=== PATIENT | female | born 1930 | race Caucasian/White ===

== ENCOUNTER 2016-12-17 12:26 | Emergency (ER) | payer OTHER ==
[2016-12-17 13:02] VITALS: BP 142/74; PULSE 69; TEMP 98.1
== END 2016-12-17 13:30 | disposition left against medical advice (07) ==
LOC: JERFT 12:26
DX: Z53.21 Procedure and treatment not carried out due to patient leaving prior to being seen by health care provider (principal)
CPT/HCPCS: 99281-25

== ENCOUNTER 2017-06-29 16:57 | Emergency (ER) | payer OTHER ==
[2017-06-29 17:15] VITALS: BP 142/66; PULSE 61; TEMP 98.7; BMI 20.5
--- NOTE | 2017-06-29 17:20 | PDOC ---
Attending Attestation - Resident Resident Name: Sparkle Castro - HPI HPI: 06/29/17 18:22 Pt presents to the ED complaining of a three day history of abscess to the upper back, without nausea, vomiting or fever. Questionable history of HIV. - Physicial Exam PE: 06/29/17 18:23 Agree with resident exam. 3 cm abscess in middle of upper back above spine. + surrounding erythema. 06/29/17 22:43 Initial i and d performed by resident, patient then refused further treatment. would not allow wound to be packed, despite extensive disucsion with the nurse, the resident and me. Attempted to confirm pharmacy with patient, who then refused to discuss her pharmacy with me. Antibiotics sent to last pharmacy of record. Patient has been informed, multiple times that her treatment is not complete, that the infection may worsen, and that she must return to the ED for fever or spreading pain and redness. Patient expressed understanding of the risks of leaving without completing medical care., - Medical Decision Making 06/29/17 18:24 Pt presents to the ED complaining of abscess to the back. Given history of HIV , plan was to check labs, but patient adamantly refused to have labs drawn. Patient is concerned that the labs will be used to "check her for HIV", states that she has recieved a letter stating that she had HIV. Patient threatened to leave the ED, was persuaded to stay when promised that no blood would be drawn without her consent. Will perform I and D, give antibiotics, bring back in two days for wound check and discharge with antibiotics.
[2017-06-29] MEDS ORDERED: LIDOCAINE HCL 2% (20ML MULTI-DOSE VIAL) NR ONE (18:04)
--- NOTE | 2017-06-29 19:09 | PDOC ---
History of Present Illness - General Chief Complaint: Abscess Boil Stated Complaint: BACK PAIN Time Seen by Provider: 06/29/17 17:13 - History of Present Illness Initial Comments: 06/29/17 19:25 Patient is an 87 y.o. female with a PMH of Hypothyroidism and possibly HIV who presents to our ED at the behest of urgent care in [place] for evaluation of a back abscess. Patient stated she noticed the abscess three days previous and denies any systemic signs of infection including fevers, chills, vomiting or diarrhea. During course of HPI and admission patient was often belligerent and repeatedly stated she did not wish to be evaluated by female doctors. Patient further notes that subsequent evaluation @ [facility] she was sent a letter from the [facility] indicating she has a "blood infection" and she believes that they infected her with a unknown blood disease. Past History - Past Medical History Allergies/Adverse Reactions: Allergies Allergy/AdvReac Type Severity Reaction Status Date / Time Penicillins Allergy Severe Difficulty Verified 12/17/16 12:38 Breathing Home Medications: Ambulatory Orders Levothyroxine [Synthroid -] 100 mcg PO DAILY 08/04/15 Calcium 250Mg/Vit-D 125 Units [Oscal 250 mg+D -] 1 combo PO BID 06/29/17 Celecoxib 200 mg PO DAILY 06/29/17 Clindamycin [Cleocin -] 300 mg PO TID #21 capsule 06/29/17 Multivitamin [One Daily] 1 each PO DAILY 06/29/17 Anemia: No Asthma: No Cancer: Yes (BILA BREAST 2009) Cardiac Disorders: No CVA: No COPD: No CHF: No Dementia: No Diabetes: No GI Disorders: No Disorders: No HTN: No Hypercholesterolemia: No Liver Disease: No Seizures: No Thyroid Disease: Yes - Surgical History Abdominal Surgery: No Appendectomy: No Cardiac Surgery: No Cholecystectomy: No Lung Surgery: No Neurologic Surgery: No Orthopedic Surgery: Yes (RIGHT FOOT HAMMER TOE REPAIR) - Suicide/Smoking/Psychosocial Hx Smoking History: Never smoked Have you smoked in the past 12 months: No Information on smoking cessation initiated: No Hx Alcohol Use: No Drug/Substance Use Hx: No Substance Use Type: None Hx Substance Use Treatment: No Review of Systems - Review of Systems Constitutional: No: Chills, Fever Respiratory: No: Shortness of Breath Cardiac (ROS): No: Chest Pain ABD/GI: No: Constipated, Diarrhea, Nausea, Vomiting *Physical Exam - Vital Signs Last Vital Signs Temp Pulse Resp BP Pulse Ox 98.7 F 61 20 142/66 97 06/29/17 17:13 06/29/17 17:13 06/29/17 17:13 06/29/17 17:13 06/29/17 17:13 - Physical Exam General Appearance: Yes: Thin Respiratory/Chest: positive: Lungs Clear Cardiovascular: positive: S1, S2 Extremity: positive: Normal Capillary Refill, Normal Inspection, Other Integumentary: positive: Normal Color, Dry, Warm, Other (3 cm indurated, TTP abscess at approximately T3-T4; surrounding circumferential erythema) Neurologic: positive: Fully Oriented, Alert ED Treatment Course - Medications Given in the ED: ED Medications Discontinued Medications Generic Name Dose Route Start Last Admin Trade Name Freq PRN Reason Stop Dose Admin Oxycodone/Acetaminophen 1 combo 06/29/17 17:31 06/29/17 17:36 Percocet 5/325 - PO 06/29/17 17:32 1 combo ONCE ONE Administration Medical Decision Making - Medical Decision Making 06/29/17 19:34 Patient is an 87 y.o. female who presents for evaluation of an abscess. On PE patient was afebrile and hemodynamically stable and has a 3 cm circumferential abscess in her thoracic spine (approximately T3-T4) with some surrounding erythema. An I&D was initiated and some purulent discharge was expressed from the wound, however patient declined further treatment and no loculations were broken and patient refused iodoform packing. Patient's wound was covered with a gauze 4x4 and she was counseled extensively to return to the ED in two days time and to return to before then for fevers, chills or severe pain. At time of shift change patient remained in the Emergency Department awaiting to police whom patient had called for unspecified reasons. Drs. Pineda (Attending) and Dr. Harman (Resident) aware of patient. *DC/Admit/Observation/Transfer Diagnosis at time of Disposition: Abscess - Discharge Dispostion Disposition: AGAINST MEDICAL ADVICE Condition at time of disposition: Good Admit: No - Prescriptions Prescriptions: Clindamycin [Cleocin -] 300 mg PO TID #21 capsule - Patient Instructions Printed Discharge Instructions: DI for Incision and Drainage of a Skin Abscess Additional Instructions: Please return to the Emergency Department in two days. Your procedure was not completed at your request. A prescription has been called to your pharmacy in [place]. Print Language: SWEDISH
== END 2017-06-29 20:10 | disposition left against medical advice (07) ==
LOC: JER 16:57
PROC: 0J970ZZ Drainage of Back Subcutaneous Tissue and Fascia, Open Approach (ICD-10-PCS; principal; 2017-06-29)
DX: L02.212 Cutaneous abscess of back [any part, except buttock and flank] (principal); E03.9 Hypothyroidism, unspecified
CPT/HCPCS: 10060; 49450; 99283-25